=== PATIENT | male | born 1935 | race Caucasian/White ===

== ENCOUNTER 2016-11-05 09:48 | Observation (INO) | payer MEDICARE, OTHER ==
[~2016-11-05] VITALS: Ht 172.7 cm; Wt 81.7 kg
[2016-11-05] MEDS: SODIUM CHLORIDE 0.9% 1,000 ML IV SCH ×2 (10:18→18:18)
[2016-11-05 10:27] VITALS: BP 154/84
[2016-11-05] MEDS ORDERED: VANCOMYCIN PMX 1GM/200ML 200 ML IVPB SCH (10:30)
[2016-11-05] MEDS ORDERED: CLOP75TA PO (10:50)
[2016-11-05] MEDS ORDERED: ROSU20TA PO (10:50)
[2016-11-05] MEDS ORDERED: UBID200C PO (10:50)
[2016-11-05] MEDS ORDERED: LOSA25TA5 PO (10:50)
[2016-11-05] MEDS ORDERED: OMEG-14 PO (10:50)
[2016-11-05] MEDS ORDERED: ASPI-496 PO (10:50)
[2016-11-05 11:04] LABS: BLOOD UREA NITROGEN 19 mg/dL (7-18)
[2016-11-05] MEDS ORDERED: VANCOMYCIN 500 MG ONE (12:42)
[2016-11-05] MEDS ORDERED: LIDOCAINE 2%, 20ML ONE (12:42)
[2016-11-05] MEDS ORDERED: FENTANYL PF 100 MCG/2ML ONE (12:42)
[2016-11-05] MEDS ORDERED: MIDAZOLAM 1 MG/ML, 5ML ONE (12:42)
[2016-11-05] MEDS ORDERED: VANCOMYCIN PMX 1GM/200ML 200 ML ONE (12:43)
[2016-11-05] MEDS ORDERED: ONDANSETRON 2MG/ML, 2ML IV PRN (14:00)
[2016-11-05] MEDS ORDERED: ZOLPIDEM 5MG TABLET PO PRN (14:00)
[2016-11-05] MEDS ORDERED: HYDROcodone/APAP 5/325 TABLET PO PRN (14:00)
[2016-11-05] MEDS ORDERED: ACETAMINOPHEN 325 MG TABLET PO PRN (14:00)
[2016-11-05] MEDS ORDERED: VANCOMYCIN PMX 1GM/200ML 200 ML IVPB ONE (16:00)
[2016-11-05 18:39] VITALS: BP 139/85
[2016-11-05] MEDS: SODIUM CHLORIDE FLUSH 10ML SYR IVF SCH (21:52)
[2016-11-06 04:15] VITALS: BP 137/78
[2016-11-06] MEDS ORDERED: ASPIRIN 81 MG TABLET EC PO SCH (06:00)
[2016-11-06] MEDS ORDERED: ACET325T14 PO (08:04)
[2016-11-06 08:07] VITALS: BP 128/81
[2016-11-06] MEDS ORDERED: CLOPIDOGREL 75 MG TABLET PO SCH (09:00)
[2016-11-06] MEDS ORDERED: OMEGA-3/FISH OIL CAPSULE PO SCH (09:00)
[2016-11-06] MEDS ORDERED: LOSARTAN 25MG TABLET PO SCH (09:00)
[2016-11-06] MEDS: SODIUM CHLORIDE FLUSH 10ML SYR IVF SCH (09:04)
== END 2016-11-06 10:55 | disposition home or self-care (01) ==
LOC: CACL 09:48 → ORIP 13:37 → 5SO 14:22 → DCLOUNGE 11-06 10:35
PROVIDERS: ADMIT Internal Medicine Cardiovascular Disease; ATTEND Internal Medicine Cardiovascular Disease
DX: I49.5 Sick sinus syndrome (principal); I44.30 Unspecified atrioventricular block; I10 Essential (primary) hypertension; E78.5 Hyperlipidemia, unspecified; R00.1 Bradycardia, unspecified; I25.10 Atherosclerotic heart disease of native coronary artery without angina pectoris
CPT/HCPCS: 33208; 36415; 71010; 80048; 96365; 99156; 99157; C1779; C1785; C1892; G0378; J2250; J3010; J3370; J3490